=== PATIENT | male | born 1950 | race Caucasian/White ===

== ENCOUNTER 2022-05-09 12:30 | Inpatient (IN) | payer OTHER ==
[2022-05-09] MEDS ORDERED: LACTATED RINGERS SOLUTION 1000 ML INFUS.BAG IV ONE (12:49)
[2022-05-09] MEDS ORDERED: ACETAMINOPHEN 1000 MG/100 ML BAG IVPB ONE (13:02)
[2022-05-09] MEDS ORDERED: VANCOMYCIN 1 GM in D5W (PRE-DOCKED) 1,000 MG/250 ML IVPB ONE (13:30)
[2022-05-09] MEDS ORDERED: PIPERACILLIN/TAZOB 4.5 GM 4.5 GM in DEXTROSE 5%-WATER 100 ML IVPB ONE (13:30)
[2022-05-09 14:15] LABS: VENOUS BASE EXCESS -1.5 mmol/L (-2-2); VENOUS O2 SATURATION 42.4 % (70-80); VENOUS PH 7.41 (7.310-7.410)
[2022-05-09 14:18] LABS: BASO % 0.5 % (0-2.0); EOS % 1.8 % (0-4.5); HEMATOCRIT 23.1 % (35.4-49); HEMOGLOBIN 7.6 GM/dL (11.7-16.9); LYMPH % 6.1 % (8-40); MCH 22.4 pg (25.7-33.7); MEAN PLT VOLUME 8.1 fl (7.5-11.1); MONO % 10.5 % (3.8-10.2); NEUT % 81.1 % (42.8-82.8); PLATELET COUNT 392 10^3/uL (134-434); RBC 3.39 M/mm3 (4.00-5.60); RDW 15.6 % (11.9-15.9); WHITE BLOOD COUNT 9.7 K/mm3 (4.0-10.0)
[2022-05-09] MEDS ORDERED: ACETAMINOPHEN INJECTION 100 ML IVPB ONE (14:28)
[2022-05-09] MEDS ORDERED: PIPERACILLIN/TAZOB 4.5 GM 4.5 GM/100 ML BAG IVPB ONE (14:29)
[2022-05-09] MEDS ORDERED: VANCOMYCIN/WATER FOR INJ (PEG) 1,000 MG/200 ML BAG IVPB ONE ×2 (14:29→17:29)
[2022-05-09 14:32] LABS: INR 1.23 (0.83-1.09); PROTHROMBIN TIME (PATIENT) 14.2 SEC (9.7-13.0)
[2022-05-09 14:34] LABS: ACTIVATED PTT 31.2 SECONDS (25.2-36.5)
[2022-05-09 14:42] LABS: ALBUMIN 2.6 g/dl (3.4-5.0); CALCIUM 7.8 mg/dL (8.5-10.1)
[2022-05-09 14:46] LABS: CREATININE 0.9 mg/dL (0.55-1.3)
[2022-05-09 14:47] LABS: BILIRUBIN,TOTAL 0.5 mg/dL (0.2-1); TOT PROT 5.8 g/dl (6.4-8.2)
[2022-05-09] MEDS ORDERED: VANCOMYCIN 1 GM/200 ML PREMIX BAG IVPB ONE (15:52)
[2022-05-09 15:57] LABS: PH,URINE 5.5 (5.0-8.0); URINE APPEARANCE CLEAR; URINE BILIRUBIN NEGATIVE (NEGATIVE); URINE COLOR YELLOW; URINE GLUCOSE (UA) NEGATIVE (NEGATIVE); URINE KETONE TRACE (NEGATIVE); URINE LEUK ESTERASE NEGATIVE (NEGATIVE); URINE NITRITE NEGATIVE (NEGATIVE); URINE PROTEIN NEGATIVE (NEGATIVE)
[2022-05-09] MEDS ORDERED: VANCOMYCIN/WATER 2 GM/400 ML PREMIX BAG IVPB SCH (22:00)
[2022-05-09] MEDS: SODIUM CHLORIDE 1,000 ML IV SCH (22:23)
[2022-05-09] MEDS: ATORVASTATIN CA 10 MG TABLET (FP) PO SCH (22:24)
[2022-05-09] MEDS: CEFEPIME 2 GM in DEXTROSE 5%-WATER 2 GM/100 ML BAG IVPB SCH (22:24)
[2022-05-09] MEDS: POLYETHYLENE GLYCOL (HEALTHYLAX) 3350 17 GM PACKET PO SCH (22:24)
[2022-05-10 02:55] VITALS: BMI 33.8
[2022-05-10] MEDS ORDERED: VANCOMYCIN/WATER 2 GM/400 ML PREMIX BAG IVPB SCH (05:00)
[2022-05-10] MEDS ORDERED: VANCOMYCIN/WATER 1,250 MG/250 ML BAG IVPB SCH ×2 (06:00)
[2022-05-10] MEDS: POLYETHYLENE GLYCOL (HEALTHYLAX) 3350 17 GM PACKET PO SCH ×2 (10:04→21:50)
[2022-05-10] MEDS: CEFEPIME 2 GM in DEXTROSE 5%-WATER 2 GM/100 ML BAG IVPB SCH ×2 (10:04→17:27)
[2022-05-10] MEDS: VANCOMYCIN/WATER 1250 MG 1,250 MG/250 ML BAG IVPB SCH (17:36)
[2022-05-10] MEDS: ATORVASTATIN CA 10 MG TABLET (FP) PO SCH (21:50)
[2022-05-11] MEDS: CEFEPIME 2 GM in DEXTROSE 5%-WATER 2 GM/100 ML BAG IVPB SCH ×3 (02:00→17:34)
[2022-05-11] MEDS: VANCOMYCIN/WATER 1250 MG 1,250 MG/250 ML BAG IVPB SCH ×2 (06:03→21:17)
[2022-05-11] MEDS: SODIUM CHLORIDE 1,000 ML IV SCH ×2 (09:06→15:54)
[2022-05-11] MEDS: POLYETHYLENE GLYCOL (HEALTHYLAX) 3350 17 GM PACKET PO SCH ×2 (09:10→21:17)
[2022-05-11] MEDS: ATORVASTATIN CA 10 MG TABLET (FP) PO SCH (21:17)
[2022-05-12] MEDS: CEFEPIME 2 GM in DEXTROSE 5%-WATER 2 GM/100 ML BAG IVPB SCH ×4 (01:58→20:53)
[2022-05-12] MEDS: VANCOMYCIN/WATER 1250 MG 1,250 MG/250 ML BAG IVPB SCH ×3 (08:48→20:54)
[2022-05-12] MEDS: POLYETHYLENE GLYCOL (HEALTHYLAX) 3350 17 GM PACKET PO SCH ×2 (09:21→21:48)
[2022-05-12 09:24] LABS: BASO % 1.1 % (0-2.0); EOS % 3.1 % (0-4.5); HEMATOCRIT 30.1 % (35.4-49); HEMOGLOBIN 9.9 GM/dL (11.7-16.9); LYMPH % 9.9 % (8-40); MCH 23.2 pg (25.7-33.7); MCHC 32.7 g/dl (32.0-35.9); MEAN CELL VOLUME 70.9 fl (80-96); MEAN PLT VOLUME 7.9 fl (7.5-11.1); NEUT % 76.9 % (42.8-82.8); PLATELET COUNT 665 10^3/uL (134-434); RBC 4.25 M/mm3 (4.00-5.60); RDW 16.1 % (11.9-15.9); WHITE BLOOD COUNT 10.9 K/mm3 (4.0-10.0)
[2022-05-12] MEDS: SODIUM CHLORIDE 1,000 ML IV SCH ×2 (09:25→20:59)
[2022-05-12 09:47] LABS: ALBUMIN 2.9 g/dl (3.4-5.0); BLOOD UREA NITROGEN 10.9 mg/dL (7-18); CALCIUM 8.5 mg/dL (8.5-10.1)
[2022-05-12 09:50] LABS: CREATININE 0.8 mg/dL (0.55-1.3)
[2022-05-12 09:52] LABS: TOT PROT 6.7 g/dl (6.4-8.2)
[2022-05-12 10:05] LABS: ERYTHROCYTE SEDIMENTATION RATE 70 mm/hr (0-20)
[2022-05-12] MEDS ORDERED: ONDANSETRON 4 MG/2 ML VIAL IVPUSH PRN ×2 (16:19→18:25)
[2022-05-12] MEDS ORDERED: HYDROmorphone HCl 2 MG/ML VIAL IVPUSH PRN ×2 (16:19→18:25)
[2022-05-12] MEDS ORDERED: KETAMINE HCL 200 MG/20 ML VIAL ONE (16:21)
[2022-05-12] MEDS ORDERED: SUCCINYLCHOLINE CHLORIDE 200 MG/10 ML SYRINGE ONE (16:21)
[2022-05-12] MEDS ORDERED: ONDANSETRON 4 MG/2 ML VIAL ONE (16:21)
[2022-05-12] MEDS ORDERED: ETOMIDATE 20 MG/10 ML AMPUL IVPUSH ONE (16:21)
[2022-05-12] MEDS ORDERED: LACTATED RINGERS SOLUTION 1,000 ML IV SCH ×2 (16:30→18:25)
[2022-05-12] MEDS ORDERED: GENTAMICIN SO4 80 MG/2 ML VIAL ONE (16:33)
[2022-05-12] MEDS ORDERED: ceFAZolin SODIUM 1 GM VIAL IVPB ONE (16:51)
[2022-05-12] MEDS ORDERED: ceFAZolin SODIUM 1 GM VIAL ONE (17:00)
[2022-05-12] MEDS ORDERED: DEXAMETHASONE SOD PHOSPHATE 4 MG/1 ML VIAL ONE (17:00)
[2022-05-12] MEDS ORDERED: GENTAMICIN SO4 80 MG/2 ML VIAL IVPB ONE (17:01)
[2022-05-12] MEDS: ATORVASTATIN CA 10 MG TABLET (FP) PO SCH (21:48)
[2022-05-12] MEDS ORDERED: oxyCODONE HCL 5 MG TABLET PO PRN ×2 (22:06)
[2022-05-12] MEDS ORDERED: diazePAM 5 MG TABLET PO PRN (22:09)
[2022-05-12] MEDS ORDERED: HYDROmorphone HCL CARPU-JECT 2 MG/1 ML DISP.SYRIN SQ PRN (22:10)
[2022-05-13] MEDS: CEFEPIME 2 GM in DEXTROSE 5%-WATER 2 GM/100 ML BAG IVPB SCH ×3 (01:42→17:20)
[2022-05-13] MEDS ORDERED: PATIENT'S OWN MEDICATION (NON-FORMULARY) (Lisinopril/Hydrochlorothiazide [Lisinopril-Hctz PO SCH (10:00)
[2022-05-13 10:01] LABS: HEMATOCRIT 29.3 % (35.4-49); HEMOGLOBIN 9.9 GM/dL (11.7-16.9); MCH 24.2 pg (25.7-33.7); MCHC 33.9 g/dl (32.0-35.9); MEAN CELL VOLUME 71.6 fl (80-96); MEAN PLT VOLUME 7.5 fl (7.5-11.1); PLATELET COUNT 611 10^3/uL (134-434); RBC 4.09 M/mm3 (4.00-5.60); WHITE BLOOD COUNT 13.4 K/mm3 (4.0-10.0)
[2022-05-13] MEDS: VANCOMYCIN/WATER 1250 MG 1,250 MG/250 ML BAG IVPB SCH ×2 (10:24→21:36)
[2022-05-13] MEDS: HYDROCHLOROTHIAZIDE 25 MG TABLET (FP) PO SCH (10:24)
[2022-05-13] MEDS: LISINOPRIL 20 MG TABLET PO SCH (10:24)
[2022-05-13] MEDS: POLYETHYLENE GLYCOL (HEALTHYLAX) 3350 17 GM PACKET PO SCH ×2 (10:24→21:36)
[2022-05-13 10:29] LABS: CALCIUM 8.6 mg/dL (8.5-10.1)
[2022-05-13 10:30] LABS: BLOOD UREA NITROGEN 14.2 mg/dL (7-18)
[2022-05-13 10:33] LABS: CREATININE 0.8 mg/dL (0.55-1.3)
[2022-05-13] MEDS: SODIUM CHLORIDE 1,000 ML IV SCH (19:20)
[2022-05-13] MEDS: ATORVASTATIN CA 10 MG TABLET (FP) PO SCH (21:36)
[2022-05-13] MEDS ORDERED: ACETAMINOPHEN 325 MG TABLET (FP) PO PRN (23:24)
[2022-05-14] MEDS: CEFEPIME 2 GM in DEXTROSE 5%-WATER 2 GM/100 ML BAG IVPB SCH ×3 (01:55→17:20)
[2022-05-14] MEDS: POLYETHYLENE GLYCOL (HEALTHYLAX) 3350 17 GM PACKET PO SCH ×2 (09:08→21:28)
[2022-05-14] MEDS: LISINOPRIL 20 MG TABLET PO SCH (09:09)
[2022-05-14] MEDS: HYDROCHLOROTHIAZIDE 25 MG TABLET (FP) PO SCH (09:09)
[2022-05-14] MEDS: SODIUM CHLORIDE 1,000 ML IV SCH (09:09)
[2022-05-14 09:11] LABS: HEMATOCRIT 29.3 % (35.4-49); HEMOGLOBIN 9.8 GM/dL (11.7-16.9); MCH 23.9 pg (25.7-33.7); MCHC 33.3 g/dl (32.0-35.9); MEAN CELL VOLUME 71.6 fl (80-96); MEAN PLT VOLUME 7.2 fl (7.5-11.1); PLATELET COUNT 627 10^3/uL (134-434); RBC 4.09 M/mm3 (4.00-5.60); WHITE BLOOD COUNT 11.1 K/mm3 (4.0-10.0)
[2022-05-14] MEDS: VANCOMYCIN/WATER 1250 MG 1,250 MG/250 ML BAG IVPB SCH ×2 (09:20→21:27)
[2022-05-14 09:21] LABS: CALCIUM 8.4 mg/dL (8.5-10.1)
[2022-05-14 09:22] LABS: BLOOD UREA NITROGEN 16.4 mg/dL (7-18)
[2022-05-14 09:25] LABS: CREATININE 0.8 mg/dL (0.55-1.3)
[2022-05-14] MEDS: ATORVASTATIN CA 10 MG TABLET (FP) PO SCH (21:28)
[2022-05-15] MEDS: CEFEPIME 2 GM in DEXTROSE 5%-WATER 2 GM/100 ML BAG IVPB SCH ×3 (01:26→18:00)
[2022-05-15] MEDS: SODIUM CHLORIDE 1,000 ML IV SCH ×2 (06:35→19:06)
[2022-05-15 08:29] LABS: HEMATOCRIT 30.1 % (35.4-49); MCH 23.9 pg (25.7-33.7); MCHC 33.2 g/dl (32.0-35.9); MEAN PLT VOLUME 7.5 fl (7.5-11.1); PLATELET COUNT 607 10^3/uL (134-434); RBC 4.18 M/mm3 (4.00-5.60); RDW 19.3 % (11.9-15.9)
[2022-05-15] MEDS: VANCOMYCIN/WATER 1250 MG 1,250 MG/250 ML BAG IVPB SCH (08:29)
[2022-05-15 09:23] LABS: BLOOD UREA NITROGEN 16.6 mg/dL (7-18); CALCIUM 8.6 mg/dL (8.5-10.1)
[2022-05-15 09:26] LABS: CREATININE 0.8 mg/dL (0.55-1.3)
[2022-05-15] MEDS: POLYETHYLENE GLYCOL (HEALTHYLAX) 3350 17 GM PACKET PO SCH ×3 (10:21→21:15)
[2022-05-15] MEDS: HYDROCHLOROTHIAZIDE 25 MG TABLET (FP) PO SCH (10:21)
[2022-05-15] MEDS: LISINOPRIL 20 MG TABLET PO SCH (10:21)
[2022-05-15] MEDS: ATORVASTATIN CA 10 MG TABLET (FP) PO SCH (21:11)
[2022-05-16] MEDS: SODIUM CHLORIDE 1,000 ML IV SCH ×3 (00:36→18:58)
[2022-05-16] MEDS: LISINOPRIL 20 MG TABLET PO SCH (09:39)
[2022-05-16] MEDS: POLYETHYLENE GLYCOL (HEALTHYLAX) 3350 17 GM PACKET PO SCH ×2 (09:39→22:01)
[2022-05-16] MEDS: HYDROCHLOROTHIAZIDE 25 MG TABLET (FP) PO SCH (09:39)
[2022-05-16 11:39] LABS: HEMATOCRIT 33.4 % (35.4-49); HEMOGLOBIN 10.5 GM/dL (11.7-16.9); MCH 23.2 pg (25.7-33.7); MCHC 31.5 g/dl (32.0-35.9); MEAN CELL VOLUME 73.7 fl (80-96); MEAN PLT VOLUME 7.8 fl (7.5-11.1); PLATELET COUNT 629 10^3/uL (134-434); RBC 4.54 M/mm3 (4.00-5.60); RDW 19.7 % (11.9-15.9); WHITE BLOOD COUNT 8.8 K/mm3 (4.0-10.0)
[2022-05-16 11:57] LABS: BLOOD UREA NITROGEN 14.4 mg/dL (7-18); CALCIUM 8.6 mg/dL (8.5-10.1)
[2022-05-16 12:01] LABS: CREATININE 0.8 mg/dL (0.55-1.3)
[2022-05-16] MEDS: ATORVASTATIN CA 10 MG TABLET (FP) PO SCH (22:01)
[2022-05-17 07:41] VITALS: RESP 20
[2022-05-17] MEDS: LISINOPRIL 20 MG TABLET PO SCH (09:30)
[2022-05-17] MEDS: POLYETHYLENE GLYCOL (HEALTHYLAX) 3350 17 GM PACKET PO SCH (09:30)
[2022-05-17] MEDS: HYDROCHLOROTHIAZIDE 25 MG TABLET (FP) PO SCH (09:30)
[2022-05-17 11:32] VITALS: BP 155/83; PULSE 76; TEMP 97.4
[2022-05-17] MEDS ORDERED: SODIUM ZIRCONIUM CYCLOSILICATE (LOKELMA) 5 GM PACKET PO SCH (11:45)
[2022-05-17 12:36] LABS: CALCIUM 8.8 mg/dL (8.5-10.1)
[2022-05-17 12:39] LABS: CREATININE 0.8 mg/dL (0.55-1.3)
== END 2022-05-17 14:55 | DRG 349 ==
LOC: JER 12:30 → JERBED 13:38 → J5S 20:39
PROVIDERS: ADMIT Internal Medicine; ATTEND Internal Medicine
PROC: 30233N1 Transfusion of Nonautologous Red Blood Cells into Peripheral Vein, Percutaneous Approach (ICD-10-PCS; 2022-05-12)
PROC: 0J9700Z Drainage of Back Subcutaneous Tissue and Fascia with Drainage Device, Open Approach (ICD-10-PCS; principal; 2022-05-12 16:00)
DX: T84.63XA Infection and inflammatory reaction due to internal fixation device of spine, initial encounter (principal); L76.32 Postprocedural hematoma of skin and subcutaneous tissue following other procedure; T81.49XA Infection following a procedure, other surgical site, initial encounter; T81.89XA Other complications of procedures, not elsewhere classified, initial encounter; I10 Essential (primary) hypertension; E11.9 Type 2 diabetes mellitus without complications; D50.9 Iron deficiency anemia, unspecified; E66.9 Obesity, unspecified; E78.5 Hyperlipidemia, unspecified; G58.9 Mononeuropathy, unspecified; Z68.33 Body mass index [BMI] 33.0-33.9, adult
CPT/HCPCS: 36415; 36430; 71045-TC-FY; 74018-TC-FY; 80048; 80053; 81003; 82553; 82728; 82803; 83036; 83540; 83550; 83605; 84484; 85025; 85027; 85045; 85610; 85651; 85730; 86850; 86900; 86901; 86922; 87040; 87070; 87075; 87086; 87205; 93005; 93010; 94760; 97116-GP; 97162-GP; 99285-25; C9803-CS; G0480; P9058; U0003; U0005